=== PATIENT | male | born 1950 | race Caucasian/White ===

== ENCOUNTER 2016-10-21 11:49 | Inpatient (IN) | payer BC ==
[2016-10-20 10:34] LABS: BASOPHILS 0.2 %; BASOPHILS ABSOLUTE 0.01 10/3/uL (0.0-0.16); EOSINOPHILS 3.4 %; EOSINOPHILS ABSOLUTE 0.15 10/3/uL (0.0-0.53); HEMATOCRIT 40.9 % (40.0-51.0); HEMOGLOBIN 14.7 g/dL (13.6-17.8); IMMATURE GRANULOCYTES 0.2 %; IMMATURE GRANULOCYTES ABSOLUTE 0.01 10/3/uL (0.0-0.11); LYMPHOCYTES 20.3 %; LYMPHOCYTES ABSOLUTE 0.89 10/3/uL (0.67-4.30); MANUAL DIFF NO %; MEAN CORPUS HGB CONC 35.9 g/dL (32.0-36.0); MEAN CORPUSCULAR HEMOGLOB 30.4 pg (26.0-34.0); MEAN CORPUSCULAR VOLUME 84.7 fL (80-100); MONOCYTES 8.4 %; MONOCYTES ABSOLUTE 0.37 10/3/uL (0.21-1.20); NEUTROPHILS 67.5 %; NEUTROPHILS ABSOLUTE 2.96 10/3/uL (2.02-8.40); PLATELET COUNT 171 10/3/uL (150-400); RED CELL COUNT 4.83 10/6/uL (4.7-6.1); WHITE BLOOD CELLS 4.4 10/3/uL (4.5-10.5)
[2016-10-20 10:40] LABS: INTERNATIONAL NORMAL RATI 1.1 UNITS (-)
[2016-10-20 10:52] LABS: A/G RATIO 1.5 (0.7-1.9); ALBUMIN 4.2 G/DL (3.5-5.0); ALKALINE PHOSPHATASE 75 U/L (45-117); BUN (BLOOD UREA NITROGEN) 27 MG/DL (6-23); CALCIUM, SERUM 9.3 MG/DL (8.5-10.4); CHLORIDE, SERUM 105 MMOL/L (96-112); CO2 (CARBON DIOXIDE) 28 MMOL/L (24-34); CREATININE 1.18 MG/DL (0.70-1.30); GFR AFRICAN AMERICAN 75 ML/MIN (>=60); GFR NON AFRICAN AMERICAN 65 ML/MIN (>=60); GLOBULIN 2.8 G/DL (2.5-4.1); GLUCOSE, SERUM 99 MG/DL (60-99); SGOT(AST) 25 U/L (5-40); SGPT(ALT) 50 U/L (5-65); SODIUM, SERUM 139 MMOL/L (135-148); TOTAL BILIRUBIN 0.7 MG/DL (0-1.2)
--- NOTE | ~2016-10-21 | OP ---
Record Of Operation [facility] [address] [place]. [address] NAME: IRVING SWEET : 54 STATUS : ADM IN PAT#: [id number] AGE: 66 ADM/REG DATE : 10/21/16 MR#: [id number] REPORT SERV DATE: 10/22/16 DICTATED BY: RODGER GARCIA JR. DATE: 10/21/16 REPORT STATUS : Draft TRANSCRIBED BY: MODKendal DATE: 10/21/16 DATE OF PROCEDURE: 10/21/2016 PREOP DIAGNOSES: Metastatic sarcoma, status post previous right thoracoscopy x2, prostate cancer. POSTOP DIAGNOSES: Metastatic sarcoma, status post previous right thoracoscopy x2, prostate cancer. NAME OF OPERATION: Bronchoscopy, redo right thoracoscopy with right upper lobe posterior segmentectomy, intercostal nerve block. RESIDENT SURGEON: Dr. Fabrice Medina. FRONT LINE LEADER: Lucas Sams. ANESTHESIA: General endotracheal. FINDINGS: The patient was noted to have no adhesions from his previous surgery. Deep to the posterolateral segment of his right upper lobe you could feel a palpable mass. Because he had a complete fissure we were able to excise the posterior segment of his right upper lobe which encompassed with a greater than 2 cm margin. Frozen section confirmed this to be a metastatic sarcoma. Final pathology is pending. DETAILS OF OPERATION: After adequate general anesthesia, the patient was intubated. A bronchoscopy was performed noting no endobronchial lesions. A left-sided double-lumen endotracheal tube was then placed. Mucous secretions were evacuated. The patient was then positioned in the left lateral decubitus position. The right chest was prepped and draped in routine sterile fashion. A small incision was made overlying the lower intercostal space. A separate anterior trocar incision was also made. Through these two incision sites, the above findings were noted. There were no adhesions. We could palpate the mass in the posterolateral segment of the right upper lobe. It was felt because of this complete fissure we could actually remove the posterior segment. The segment was identified easily because of the complete fissure. We were able to get to this area removing using multiple firings of a RAUL stapler with tissue reinforcements the posterior segment. Given his previous resection there was still the anterior apical portion left to this right upper lobe. The hilar structures were not touched. There was no significant lymphadenopathy present. The specimen was placed within a specimen bag and drawn through the anterior trocar site. The lung was reinflated noting good aeration to the remaining portion of the right upper lobe. An intercostal nerve block was also performed. A 20-Armenian chest tube was placed. The lung was reinflated. The trocar sites were closed with running Vicryl sutures. The skin was closed with running monofilament suture. A Dermabond dressing was applied. The procedure was terminated at this point. The patient tolerated the procedure well and was taken back to recovery room in stable condition. Record Of Operation [facility] [address] [place]. [address] NAME: IRVING SWEET : 54 STATUS : ADM IN [facility]#: [id number] AGE: 66 ADM/REG DATE : 10/21/16 MR#: [id number] REPORT SERV DATE: 10/22/16 DICTATED BY: RODGER GARCIA JR. DATE: 10/21/16 REPORT STATUS : Draft TRANSCRIBED BY: FEDERICO DATE: 10/21/16 AMMY/FEDERICO Rodger Garcia Jr., M.D. / [id number] CC: Claudia Dillard Jr., M.D.
[~2016-10-21 11:49] MED LIST: *DENIES; ADVIL PO; ASAB PO; CIALIS5 MG PO; LUPRON INJECTION IM; MULTI-VIT HP PO; MULTIVITAMI1 PO; PERCOCET1 TA4 PO; T PO
[2016-10-22 03:54] LABS: BASOPHILS 0 %; EOSINOPHILS 0 %; HEMATOCRIT 39.3 % (40.0-51.0); HEMOGLOBIN 14.1 g/dL (13.6-17.8); IMMATURE GRANULOCYTES 0.2 %; IMMATURE GRANULOCYTES ABSOLUTE 0.02 10/3/uL (0.0-0.11); LYMPHOCYTES ABSOLUTE 0.47 10/3/uL (0.67-4.30); MEAN CORPUS HGB CONC 35.9 g/dL (32.0-36.0); MEAN CORPUSCULAR HEMOGLOB 30.6 pg (26.0-34.0); MEAN CORPUSCULAR VOLUME 85.2 fL (80-100); MEAN PLATELET VOLUME 8.9 fL (9.2-13.0); MONOCYTES 3.2 %; NEUTROPHILS 91.6 %; NEUTROPHILS ABSOLUTE 8.56 10/3/uL (2.02-8.40); PLATELET COUNT 186 10/3/uL (150-400); RBC DISTRIBUTION WIDTH 12.8 % (12.0-16.0); RED CELL COUNT 4.61 10/6/uL (4.7-6.1)
[2016-10-22 03:55] LABS: MANUAL DIFF NO %; WHITE BLOOD CELLS 9.4 10/3/uL (4.5-10.5)
[2016-10-22 04:06] LABS: CALCIUM, SERUM 8.8 MG/DL (8.5-10.4); CHLORIDE, SERUM 103 MMOL/L (96-112); CO2 (CARBON DIOXIDE) 25 MMOL/L (24-34); CREATININE 1.34 MG/DL (0.70-1.30); GFR AFRICAN AMERICAN 64 ML/MIN (>=60); GFR NON AFRICAN AMERICAN 56 ML/MIN (>=60); POTASSIUM, SERUM 4.6 MMOL/L (3.5-5.3); SODIUM, SERUM 136 MMOL/L (135-148)
[2016-10-22 04:08] LABS: BUN (BLOOD UREA NITROGEN) 20 MG/DL (6-23); GLUCOSE, SERUM 167 MG/DL (60-99)
[2016-10-22] MEDS ORDERED: PCET PO (12:27)
== END 2016-10-22 13:54 | disposition home or self-care (01) | DRG 164 ==
LOC: SDC/OF 11:49 → 5NO 18:40
PROVIDERS: Thoracic Surgery (Cardiothoracic Vascular Surgery)
PROC: 0BJ08ZZ Inspection of Tracheobronchial Tree, Via Natural or Artificial Opening Endoscopic (ICD-10-PCS; 2016-10-21)
PROC: 3E0T3BZ Introduction of Anesthetic Agent into Peripheral Nerves and Plexi, Percutaneous Approach (ICD-10-PCS; 2016-10-21)
PROC: 0BBC4ZZ Excision of Right Upper Lung Lobe, Percutaneous Endoscopic Approach (ICD-10-PCS; principal; 2016-10-21 14:45)
DX: C78.01 Secondary malignant neoplasm of right lung (principal); C49.9 Malignant neoplasm of connective and soft tissue, unspecified; C61 Malignant neoplasm of prostate
CPT/HCPCS: 36415; 71020; 80048; 80053; 82962; 85025; 85610; 86850; 86900; 86901; 86920; 87641; 88309; 88331; 93005; 94640; A9270-GY; J0690; J2250; J2370; J2405; J2710; J2795; J3010